=== PATIENT | female | born 1970 | race African-American/Black ===

== ENCOUNTER 2022-10-20 20:58 | Emergency (ER) | payer BC ==
[2022-10-20] MEDS ORDERED: Mag-Al Plus 1200 MG/1200 MG/120 MG/30 ML UDCUP ONE (21:57)
[2022-10-20] MEDS ORDERED: predniSONE 20 MG TAB ONE (21:57)
[2022-10-20] MEDS ORDERED: Famotidine 20 MG TAB ONE (21:57)
[2022-10-20] MEDS ORDERED: Lidocaine Viscous Sol 2% 15 ml UD Cup ONE (21:57)
== END 2022-10-20 22:35 | disposition home or self-care (01) ==
LOC: BURERS 20:58
DX: T78.40XA Allergy, unspecified, initial encounter (principal); G35 Multiple sclerosis; M32.9 Systemic lupus erythematosus, unspecified; Z79.899 Other long term (current) drug therapy
CPT/HCPCS: 99283; J7512